=== PATIENT | female | born 1955 | race Caucasian/White ===

== ENCOUNTER → 2017-06-01 14:23 | Outpatient (CLI) | payer OTHER, SELFPAY ==
--- NOTE | 2017-06-01 14:31 | XR_ITS ---
XR chest 2V HISTORY: ITS.REASON: COUGH ORDERING PHYSICIAN: Trevin Sierra PATIENT AGE: 61 years COMPARISON: None available FINDINGS: The cardiomediastinal silhouette and pulmonary vascularity are within normal limits. The lungs are clear without infiltrates, suspicious nodules, or pleural effusions. No acute bony abnormalities. IMPRESSION: Negative chest, no acute finding
== END ==
PROVIDERS: PCP Internal Medicine; Visit Provider Internal Medicine
DX: R05 Cough (principal)
CPT/HCPCS: 71046

== ENCOUNTER → 2021-08-12 16:41 | Outpatient (CLI) | payer OTHER, MEDICARE, SELFPAY ==
--- NOTE | 2021-08-12 16:51 | XR_ITS ---
PROCEDURE INFORMATION: Exam: XR Cervical Spine Exam date and time: 08/12/2021 4:52 PM Age: 65 years old Clinical indication: Pain; Cervicalgia; Additional info: Lt arm pain, lt posterior shoulder TECHNIQUE: Imaging protocol: XR of the cervical spine. Views: 4 or 5 views. COMPARISON: CR CXR2V XR chest 2V 06/01/2017 2:36 PM FINDINGS: Bones/joints: Generalized osteopenia. Bilateral neural foraminal stenosis most pronounced at C6-7 on the left. Loss of the cervical lordotic curvature. Multilevel disc degeneration most pronounced at C5-6, C6-7 and C7-T1. Soft tissues: Unremarkable. IMPRESSION: 1. Cervical spondylosis. Multilevel disc degeneration most pronounced at C5-6, C6-7 C7-T1. 2. Osteopenia.
== END ==
PROVIDERS: PCP Internal Medicine; Visit Provider Internal Medicine
DX: M54.2 Cervicalgia (principal); M25.512 Pain in left shoulder; M79.602 Pain in left arm
CPT/HCPCS: 72050

== ENCOUNTER 2023-09-04 10:15 | Emergency (ER) | payer MEDICARE, SELFPAY ==
--- NOTE | 2023-09-04 10:24 | XR_ITS ---
PROCEDURE INFORMATION: Exam: XR Right Hand Exam date and time: 09/04/2023 10:19 AM Age: 67 years old Clinical indication: Injury or trauma; Other: Injured picking up a jug; Dislocation; Severity not specified; Hand; Right; Additional info: Injury to middle finger, possible dislocation to 3rd digit TECHNIQUE: Imaging protocol: Radiologic exam of the right hand. Views: 3 or more views. COMPARISON: No relevant prior studies available. FINDINGS: Bones/joints: There is no evidence of acute fracture. There is [id number] osteoarthritis affecting the DIP joints. Soft tissues: Normal. IMPRESSION: 1. No evidence of acute fracture or dislocation. 2. Btqx-[id number] osteoarthritis of the DIP joints.
[2023-09-04 10:45] VITALS: BP 146/84; PULSE 70; RESP 20; TEMP 36.9; O2SAT 100; BMI 27.4
--- NOTE | 2023-09-04 11:17 | ED_ITS ---
Discharge Plan Disposition Patient Disposition: Home, Self-Care Condition: Good Referrals Follow up/Referrals: Trevin Sierra MD [Primary Care Provider] - See instructions Activity Restrictions/Add. Instructions Additional Instructions/Restrictions: Call and make appointment for [facility] [phone] *RICE, Rest the extremity, Ice 15-20 minutes 3-4 times daily, Compress- wear the patrice wrap as discussed as much as possible to help reduce swelling and pain, Elevate the extremity when at rest *Patrice wrap is for support and help control swelling, use it except in the shower. Be sure that is not to tight but not to loose either *Elevate when resting? *Ibuprofen 600-800mg every 6-8 hours as needed for pain an inflammation. If need something more can take Tylenol in between doses of Ibuprofen to help Immediately follow up with your family doctor for new or worsening of symptoms, or no noticeable improvement over the next 3-5 days Clinical Impressions Clinical Impression: Finger injury Instructions Patient Instructions: How To Perform RICE (Rest, Ice, Compress, Elevate), Ibuprofen Discharge ED Provider: Christy Oconnell [facility] HPI General Stated complaint: dislocated right middle finger Mode of Arrival: Ambulatory Source of Information: Patient Limitations: No Limitations Time Seen by Provider: 09/04/23 11:17 Description of Symptoms (Recalled from Triage Doc. by RN): PATIENT STATES SHE LIFTED A JUG OF TEA YESTERDAY AND INJURED HER RIGHT MIDDLE FINGER HEENT Symptoms (Recalled from RN notes): No Resp Symptoms (Recalled from RN notes): No Skin Symptoms (Recalled from RN notes): No MS Symptoms (Recalled from RN notes): Yes Functional Status (Recalled from RN notes): WNL History of Present Illness Provider Complaint: Patient states that she was lifting a jug of tea yesterday and felt her right middle finger give and looked like it popped out of joint States that he put it back in place and put a finger splint on it but everytime she takes off the splint and bends the finger it 'pops out again so today she was having bruising and swelling so she came in to get it checked worried she may have dislocated her finger Related Data Allergies Allergy/AdvReac Type Severity Reaction Status Date / Time Penicillins Allergy Verified 09/04/23 10:55 Worker's Comp Is this a Worker's Comp case?: No [facility] Disclaimer: The information contained in this section may have been updated after the patient was seen, as this information can be updated by other users. Social History Smoking Status: Unknown if ever smoked alcohol intake: never current occupational status: employed Travel in the last 8 weeks: None ROS Obtained: Yes All systems reviewed & no additional complaints except as documented and Yes Systems reviewed as appropriate & no additional complaints except as documented Constitutional Constitutional: Reports system reviewed and no additional complaints, except as documented and Reports as per HPI ENT Ears, Nose, Mouth, and Throat: Reports system reviewed and no additional complaints, except as documented and Reports as per HPI Respiratory Respiratory: Reports system reviewed and no additional complaints, except as documented and Reports as per HPI Musculoskeletal Musculoskeletal: Reports system reviewed and no additional complaints, except as documented, Reports as per HPI and Reports other Comments: Bruising, swelling and pain to right middle finger Physical Exam General General appearance: alert and in no apparent distress Respiratory Respiratory exam: Present normal lung sounds bilaterally; Absent respiratory distress or wheezes Cardiovascular Cardiovascular exam: Present regular rate, normal rhythm and normal heart sounds Expanded Upper Extremity Exam Right: Hand L/R back image: 2 1. swelling and bruising noted Neurological Exam Neurological exam: Present alert, oriented X3 and normal gait Medical Decision Making Alan Inquiry Pt receiving controlled substance: No Alan was queried for this patient: No Vital Signs: 09/04/23 10:45 Temperature 98.5 F Temperature Source Oral Pulse Rate [Left Brachial] 70 Respiratory Rate 20 Blood Pressure [Left Arm] 146/84 H Blood Pressure Mean [Left Arm] 104 Blood Pressure Source [Left Arm] Automatic Cuff Blood Pressure Position [Left Arm] Sitting 02 Sat by Pulse Oximetry 100 Oxygen Delivery Method Room Air Orders (Tests/Meds): ORDERS Category Date Time Status XR hand RT min 3V Stat Exams 09/04/23 10:24 Completed Radiology Data #1: Image(s): Hand Image Reviewed: Yes I have reviewed radiologist's interpretation IMPRESSION: 1. No evidence of acute fracture or dislocation. 2. [id number] osteoarthritis of the DIP joints. Medical Decision Narrative: Patient has finger splint in place will help support with patrice wrap and have patient follow up with [facility] for further evaluation
[2023-09-04 11:36] VITALS: BP 146/84; PULSE 70; RESP 20; TEMP 36.9; O2SAT 100
== END 2023-09-04 11:43 | disposition home or self-care (01) ==
PROVIDERS: Emergency Provider Nurse Practitioner; PCP Internal Medicine
DX: S60.031A Contusion of right middle finger without damage to nail, initial encounter (principal); M19.041 Primary osteoarthritis, right hand; X50.9XXA Other and unspecified overexertion or strenuous movements or postures, initial encounter
CPT/HCPCS: 73130; 99204; 99212; G0463